=== PATIENT | male | born 1965 | race Hispanic/Latino ===

== ENCOUNTER 2017-06-17 07:35 | Day surgery (SDC) | payer BC ==
[2017-06-17 07:59] VITALS: BMI 36.0
[2017-06-17] MEDS ORDERED: Propofol 10 mg/ml Inj (20 ML) ONE (09:42)
[2017-06-17] MEDS ORDERED: Simethicone 40 mg/0.6 ml Liquid (30 ml) ONE (09:54)
[2017-06-17] MEDS ORDERED: Lactated Ringer's 500 ML IV SCH (10:00)
[2017-06-17 10:27] VITALS: TEMP 97
[2017-06-17 10:42] VITALS: RESP 12; O2SAT 97
[2017-06-17 10:50] VITALS: BP 116/72; PULSE 63
== END 2017-06-17 10:48 | disposition home or self-care (01) ==
LOC: C.ENDO 07:35
PROVIDERS: ATTEND Internal Medicine Gastroenterology
DX: K64.8 Other hemorrhoids (principal)
CPT/HCPCS: 45378; J2704; J3010; J7120